=== PATIENT | male | born 1985 | race Caucasian/White ===

== ENCOUNTER 2021-05-09 09:21 | Emergency (ER) | payer SELFPAY ==
[2021-05-09] MEDS ORDERED: Neomycin-Polymyxin-Hc 7.5 ML BOT ONE (09:44)
[2021-05-09] MEDS ORDERED: NEOMYCIN-POLYMYXIN-HC EAR SUSP 200 DROP/10 ML BOT ONE (09:46)
== END 2021-05-09 09:50 | disposition home or self-care (01) ==
LOC: BURERS 09:21
DX: H60.501 Unspecified acute noninfective otitis externa, right ear (principal)
CPT/HCPCS: 99282